=== PATIENT | female | born 1955 | race Caucasian/White ===

== ENCOUNTER 2017-09-26 08:06 | Outpatient (CLI) | payer MEDICAID ==
[2017-09-26] VITALS (12 sets, daily range): BP systolic 149–169; BP diastolic 62–77
[~2017-09-26] VITALS: Ht 167.6 cm; Wt 68.0 kg
[~2017-09-26 08:06] MED LIST: ALBU18HF2 INH; AMLO-339 PO; ATOR80TA PO; CLA10T PO; CLON-527 PO; DIL100C PO; HYDR25TA4 PO; LOSA100T28 PO; MOME13HF INH; NITR0.4T51 SL; OXYC20TA40 PO; POTA8TAB46 PO; SPIIN INH; TRAZ-218 PO
[2017-09-26] MEDS ORDERED: regadenoson 0.4mg/5ml syringe IV ONE ×3 (09:00→10:09)
[2017-09-26] MEDS ORDERED: metoprolol tartrate 1mg/ml inj IV PRN (09:20)
[2017-09-26] MEDS ORDERED: aminophylline 250mg/10ml inj. IV PRN (09:20)
[2017-09-26] MEDS ORDERED: nitroGLYCERIN 0.4mg SUBLingual tab SL PRN (09:20)
[2017-09-26] MEDS ORDERED: atropine 0.1mg/ml 10ml syringe IV PRN (09:20)
[2017-09-26] MEDS ORDERED: CAFFEINE CITRATE 60 MG/3 ML injection vial IV ONE (10:09)
== END 2017-09-26 23:59 | disposition home or self-care (01) ==
LOC: RAD 08:06
PROVIDERS: ATTEND Internal Medicine Interventional Cardiology
DX: Z01.818 Encounter for other preprocedural examination (principal); I25.10 Atherosclerotic heart disease of native coronary artery without angina pectoris; I10 Essential (primary) hypertension; I44.7 Left bundle-branch block, unspecified; R07.9 Chest pain, unspecified; J44.9 Chronic obstructive pulmonary disease, unspecified; Z87.891 Personal history of nicotine dependence
CPT/HCPCS: 78452; 93017; A9500; J0461